=== PATIENT | male | born 1950 | race Caucasian/White ===

== ENCOUNTER 2020-07-26 10:13 | Emergency (ER) | payer MEDICARE, OTHER, SELFPAY ==
[2020-07-26 10:20] VITALS: BP 120/77; PULSE 116; RESP 16; TEMP 36.7; O2SAT 95; BMI 25.0
--- NOTE | 2020-07-26 10:44 | XR_ITS ---
WS: [id number] Portable AP upright chest, 07/26/2020 Clinical Data: dyspnea Comparison: None. Findings: Bilateral patchy opacities are seen especially in the lower lobes. No nodules, masses or ef fusions are seen. The heart is normal. The aortic arch and descending aorta show tortuosity. XR/XR chest 1V portable [id number] Impression: 1. Bilateral patchy opacities which probably represent acute pneumonia. 2. Atherosclerosis.
--- NOTE | 2020-07-26 10:54 | ED_ITS ---
HPI - URI/Sore Throat General: Chief Complaint: Headache Stated Complaint: Weakness/Sick Time Seen by Provider: 07/26/20 10:35 History of Present Illness: HPI Narrative: The patient is a 70-year-old male who complains of headache, and nonproductive cough for the past few days. He vomited a few days ago as well and has not had the taste for food since so he has not been eating or drinking very much at all. Denies chest pain and shortness of breath though he says it does hurt a little bit when he coughs in his belly. Also admits slight nausea. He says he has no medical problems and does not even have a primary care physician. No known exposure to Covid. MD elicited complaint: cough Onset (ago): day(s) (3) Severity: moderate Able to tolerate fluids by mouth: Yes Exacerbating factors: nothing Relieving factors: nothing Associated symptoms: Reports abdominal pain, chills, cough, headache(s), myalgias and nausea; Deny chest pain, diarrhea, ear or mastoid pain, fever(s), nasal congestion or sore throat Review of Systems General: Reports: 10 or more systems reviewed and unremarkable except in HPI and below Const: Reports: chills; Denies: fever(s) Eyes: Denies: change in vision, blurry vision or eye redness ENMT: Denies: throat pain, swelling of lips/tongue, ear or mastoid pain or nasal congestion Card: Denies: chest pain Resp: Denies: dyspnea, productive cough or non-productive cough GI: Reports: abdominal pain and nausea; Denies: diarrhea : Denies: flank pain, urinary frequency or urinary urgency Musc: Denies: neck pain, back pain, extremity pain, joint pain, joint redness, limited range of motion or muscle weakness Skin/Breast: Denies: rash, pruritus, erythema, skin pain or skin tenderness Neuro: Reports: headache(s) Psych: Denies: anxiety or depression Endo: Denies: polyuria All/Imm: Denies: urticaria, throat swelling or tongue swelling Physical Exam Const: COMMON NORMALS: no acute distress, average body habitus, patient oriented x3, no limitations, healthy appearing, alert and well nourished GENERAL APPEARANCE: cooperative, comfortable, well kempt and well developed ORIENTATION/CONSCIOUSNESS: Yes awake, Yes oriented to person, Yes oriented to place and Yes oriented to time HENMT: COMMON NORMALS: normocephalic, external ears normal and Normal external nose present HEAD & SCALP: normal to inspection and normocephalic NOSE: Normal external nose present EXTERNAL EAR: Yes external ears normal MOUTH: Normal oral and palatal mucosa present THROAT: posterior oropharynx normal Eye: COMMON NORMALS: Equal, round and reactive pupils present and EOMs intact bilaterally GENERAL EYE: appearance normal, both eyes and all related structures PUPIL: Yes Equal, round and reactive pupils present Neck/C-Spine: COMMON NORMALS: full ROM, no lymphadenopathy, no meningeal signs and no JVD GENERAL: Yes normal visual inspection Lymph: LYMPHATIC: no lymphadenopathy noted Chest: COMMONS NORMALS: normal inspection of the chest and normal palpation of entire chest wall Resp: COMMON NORMALS: normal respiratory effort, No retractions, No use of accessory muscles, clear to auscultation bilaterally and percussion normal EFFORT & INSPECTION: Yes able to speak in complete sentences AUSCULTATION: clear to auscultation bilaterally PERCUSSION: percussion normal Cardio: COMMON NORMALS: no JVD, regular rate, regular rhythm, S1 normal heart sound present, S2 normal heart sound present and Peripheral pulses 2+ throughout RATE: regular rate RHYTHM: regular rhythm HEART SOUNDS: S1 normal heart sound present and S2 normal heart sound present PERIPHERAL PULSES: Peripheral pulses 2+ throughout GI: COMMON NORMALS: Normal to inspection, nondistended, normoactive bowel sounds present, Soft to palpation, non-tender and no masses INSPECTION: Yes normal to inspection PALPATION: Yes Soft to palpation : COMMON NORMALS: Yes no CVA tenderness BLADDER/KIDNEY EXAM: Yes no CVA tenderness Back/Pelvis: COMMON NORMALS: no CVA tenderness, thoracic and lumbar spine normal to inspection, no thoracic nor lumbar tenderness and thoraco-lumbar ROM normal Extremity: COMMON NORMALS: normal to inspection, full ROM, capillary refill normal, no joint enlargement and no pedal edema GENERAL: Yes normal exam except as noted Neuro: COMMON NORMALS: patient oriented x3, CN's II-XII intact bilaterally, moves all extremities, no focal motor deficits, no sensory deficits noted and gait normal SENSORIUM/ORIENTATION: Yes alert, Yes oriented to person, Yes oriented to place and Yes oriented to time MENINGEAL SIGNS: Yes no meningeal signs Psych: COMMON NORMALS: mental status grossly normal, Normal thought process present, cooperative, normal affect and speech normal APPEARANCE: Yes well kempt ATTITUDE: Yes calm SPEECH: Yes normal speech THOUGHT PROCESS: Normal thought process present Skin: COMMON NORMALS: no rashes or lesions noted GENERAL SKIN EXAM: no rashes or lesions noted Course Vital Signs: Vital signs: Vital Signs Temperature 98.1 F 07/26/20 10:20 Pulse Rate 116 H 07/26/20 10:20 Respiratory Rate 16 07/26/20 10:20 Blood Pressure 120/77 07/26/20 10:20 Pulse Oximetry 95 07/26/20 10:20 MDM - URI/Sore Throat MDM Narrative: Medical decision making narrative: The patient came into the hospital dehydrated and suffering from Covid symptoms. He swabbed positive and chest x-ray also shows a bilateral lower lobe pneumonia. He was given IV dexamethasone and a tablet of levofloxacin and will be discharged with the same and an albuterol inhaler. He is scheduled tomorrow for a BAM infusion. Recommend following up with primary care physician in a few days and returning to ER with worsening symptoms at any time Lab Data: Labs: Lab Results 07/26/20 07/26/20 07/26/20 Range/Units 11:18 11:18 11:18 WBC 7.7 (4.0-10.0) 10^3/ uL RBC 6.06 H (4.1-5.3) 10^6/u L Hgb 17.7 H (11.7-16.6) g/dL Hct 53.2 H (42.0-52.0) % MCV 87.8 (80-94) fL MCH 29.2 (28.0-34.0) pg MCHC 33.3 (30.0-36.0) g/dL RDW 12.1 (12.1-15.1) % Plt Count 149 (130-400) 10^3/c mm MPV 11.8 H (7.4-10.4) fL Neut % (Auto) 86.5 % Lymph % (Auto) 5.6 % Wood % (Auto) 7.5 % Eos % (Auto) 0.0 % Baso % (Auto) 0.1 % Neut # (Auto) 6.65 (1.8-7.7) 10^3/u L Lymph # (Auto) 0.4 L (0.8-4.8) 10^3/u L Wood # (Auto) 0.6 (0.2-0.9) 10^3/u L Eos # (Auto) 0.0 (0.0-0.8) 10^3/u L Baso # (Auto) 0.0 (0.0-0.1) 10^3/u L Nucleated RBC % (a uto) 0 % Nucleated RBCs # 0.0 /100WBC Sodium 132 L (136-145) mmol/L Potassium 4.3 (3.5-5.1) mmol/L Chloride 96 L (98-107) mmol/L Carbon Dioxide 24 (22-29) mmol/L Anion Gap 16.3 (5-19) BUN 20 (8-23) mg/dL Creatinine 0.9 (0.7-1.2) mg/dL GFR Calculation 83.9 L (90-130) mL/min Glucose 113 (65-115) mg/dL Calculated Osmolal ity 277 L (285-295) mOsm/k g Lactate 1.6 (0.5-2.2) mmol/L Calcium 9.3 (8.5-10.5) mg/dL Total Bilirubin 0.9 (0.15-1.2) mg/dL AST 22 (0-40) U/L ALT 27 (0-41) U/L Alkaline Phosphata se 60 (40-130) IU/L Troponin T Baselin e (0-15) ng/L Total Protein 7.7 (6.6-8.7) g/dL Albumin 4.1 (3.5-5.2) g/dL Globulin 3.6 (1.3-4.6) g/dL SARS-CoV-2 Ag (Rap id) (Negative) 07/26/20 07/26/20 Range/Units 11:18 11:23 WBC (4.0-10.0) 10^3/ uL RBC (4.1-5.3) 10^6/u L Hgb (11.7-16.6) g/dL Hct (42.0-52.0) % MCV (80-94) fL MCH (28.0-34.0) pg MCHC (30.0-36.0) g/dL RDW (12.1-15.1) % Plt Count (130-400) 10^3/c mm MPV (7.4-10.4) fL Neut % (Auto) % Lymph % (Auto) % Wood % (Auto) % Eos % (Auto) % Baso % (Auto) % Neut # (Auto) (1.8-7.7) 10^3/u L Lymph # (Auto) (0.8-4.8) 10^3/u L Wood # (Auto) (0.2-0.9) 10^3/u L Eos # (Auto) (0.0-0.8) 10^3/u L Baso # (Auto) (0.0-0.1) 10^3/u L Nucleated RBC % (a uto) % Nucleated RBCs # /100WBC Sodium (136-145) mmol/L Potassium (3.5-5.1) mmol/L Chloride (98-107) mmol/L Carbon Dioxide (22-29) mmol/L Anion Gap (5-19) BUN (8-23) mg/dL Creatinine (0.7-1.2) mg/dL GFR Calculation (90-130) mL/min Glucose (65-115) mg/dL Calculated Osmolal ity (285-295) mOsm/k g Lactate (0.5-2.2) mmol/L Calcium (8.5-10.5) mg/dL Total Bilirubin (0.15-1.2) mg/dL AST (0-40) U/L ALT (0-41) U/L Alkaline Phosphata se (40-130) IU/L Troponin T Baselin e 9 (0-15) ng/L Total Protein (6.6-8.7) g/dL Albumin (3.5-5.2) g/dL Globulin (1.3-4.6) g/dL SARS-CoV-2 Ag (Rap id) Positive H (Negative) Discharge Plan Discharge Patient Disposition: Home Clinical Impression: COVID-19, Pneumonia Condition: Stable Prescriptions: New albuterol sulfate 90 mcg/actuation HFA aerosol inhaler 2 inh inhalation Q6H PRN (Reason: shortness of breath or wheezing) 90 Days RF: 0 levofloxacin 750 mg tablet 750 mg PO DAILY 14 Days RF: 0 Medrol (Deshaun) 4 mg tablets,dose pack See Rx Instructions PO .COMPLEX Qty: 21 RF: 0 No Action Aspir-81 81 mg Tablet,Delayed Release (Dr/Ec) 81 mg PO PRN RF: 0 garlic Tablet 1 tab PO PRN RF: 0 Suphedrine PE 10 mg Tablet 10 mg PO PRN RF: 0 Discharge Orders: Discharge ED (Routine); Ordered 07/26/20 Ordered By: Ron Pedroza Discharge Diet: Advance as tolerated Discharge Activity: Resume usual activity Patient Instructions: Bacterial Pneumonia (ED) Activity Restrictions/Additional Instructions: You have COVID-19 and a small pneumonia as well. Please take the antibiotics, steroids, and use the albuterol inhaler to help you if you get short of breath. Return to the ER with worsening symptoms. Otherwise you may follow-up outpatient for the BAM injection tomorrow and with your primary care physician in a few days. Return to the ER with worsening symptoms at any time Coding Level of Care Code ED Loss Prevention/Safety District Manager for [facility] Pool Exam Comprehensive
[2020-07-26 11:40] LABS: Basophils % 0.1 %; Hematocrit 53.2 % (42.0-52.0); Hemoglobin 17.7 g/dL (11.7-16.6); Lymphocytes # 0.4 10^3/uL (0.8-4.8); Lymphocytes % 5.6 %; Mean Corpuscular HGB Conc 33.3 g/dL (30.0-36.0); Mean Corpuscular Hemoglobin 29.2 pg (28.0-34.0); Mean Corpuscular Volume 87.8 fL (80-94); Mean Platelet Volume 11.8 fL (7.4-10.4); Monocytes # 0.6 10^3/uL (0.2-0.9); Monocytes % 7.5 %; Neutrophils # 6.65 10^3/uL (1.8-7.7); Neutrophils % 86.5 %; Nucleated Red Blood Cells % 0 %; Platelet Count 149 10^3/cmm (130-400); Red Blood Count 6.06 10^6/uL (4.1-5.3); Red Cell Distribution Width 12.1 % (12.1-15.1); White Blood Count 7.7 10^3/uL (4.0-10.0)
[2020-07-26 11:47] LABS: Alanine Aminotransferase 27 U/L (0-41); Albumin Level 4.1 g/dL (3.5-5.2); Alkaline Phosphatase 60 IU/L (40-130); Anion Gap 16.3 (5-19); Aspartate Amino Transferase 22 U/L (0-40); Blood Urea Nitrogen 20 mg/dL (8-23); Calcium 9.3 mg/dL (8.5-10.5); Carbon Dioxide 24 mmol/L (22-29); Chloride 96 mmol/L (98-107); Globulin 3.6 g/dL (1.3-4.6); Glomerular Filtration Rate 83.9 mL/min (90-130); Glucose 113 mg/dL (65-115); Lactate (Lactic Acid level) 1.6 mmol/L (0.5-2.2); Osmolality Calculated 277 mOsm/kg (285-295); Potassium 4.3 mmol/L (3.5-5.1); Sodium 132 mmol/L (136-145); Total Bilirubin 0.9 mg/dL (0.15-1.2); Total Protein 7.7 g/dL (6.6-8.7)
[2020-07-26 11:51] LABS: Troponin(5th) Baseline 9 ng/L (0-15)
[2020-07-26] MEDS: ondansetron 2 mg/ML SDV 2 mL 4 MG IVP (12:03)
[2020-07-26] MEDS: sodium chloride 0.9% 1,000 ML 999 ML IV (12:03)
[2020-07-26] MEDS: ketorolac 30 mg/mL INJ 15 MG IVP (12:03)
[2020-07-26 12:16] LABS: SARS Covid-2 Antigen Positive (Negative)
[2020-07-26] MEDS: dexamethasone 10 mg/mL INJ IVP (13:47)
[2020-07-26] MEDS: levoFLOXacin 750 mg Tablet PO (13:47)
--- NOTE | 2020-07-26 14:16 | DCPLANNER ---
patient manager was asked to schedule an out patient BAM infusion for patient. patient manager faxed order for BAM infusion to centralized scheduling. Centralized scheduling will call patient with appointment information.
[2020-07-26 14:26] VITALS: BP 117/76; PULSE 95; RESP 20; TEMP 37.2; O2SAT 92
--- NOTE | 2020-07-27 10:29 | DCPLANNER ---
program manager environmental planning had message to speak with patient about getting established with a primary care physician. program manager environmental planning was unable to speak with patient, and unable to leave a message for patient.
== END 2020-07-26 14:27 | disposition home or self-care (01) ==
PROVIDERS: Emergency Provider Family Medicine
DX: U07.1 COVID-19 (principal); J12.82 Pneumonia due to coronavirus disease 2019; Z79.82 Long term (current) use of aspirin
CPT/HCPCS: 12345; 36415; 71045; 80053; 83605; 84484; 85025; 87040; 87426; 96361; 96374; 96375; 99282; 99284; J1100; J1885; J2405; J7030

== ENCOUNTER 2020-07-27 12:43 | Outpatient (CLI) | payer MEDICARE, OTHER, SELFPAY ==
[2020-07-27 13:16] VITALS: BMI 24.4
[2020-07-27 13:20] VITALS: BP 128/75; PULSE 105; RESP 20; TEMP 38.8; O2SAT 92
--- NOTE | 2020-07-27 13:28 | A.OFFVIS_ITS ---
Patient Information Referred by: Yovany Symptom onset date: 07/23/20 COVID 19 common symptoms: positive fever(s) and cough [facility] COVID test results: SARS-CoV-2 Antigen (Rapid) Positive (Negative) H 07/26/20 11:23 07/26/20 Criteria/Plan Inclusion/Exclusion Criteria weight >/= 40kg, + direct test </= 10 days ago and symptom onset </= 10 days ago age >/= 65 not requiring hospitalization, not requiring oxygen (if not chronically on oxygen) and no increase oxygen requirement (if chronically on oxygen) Patient education patient/caregiver received/reviewed fact sheet, Emergency Use Authorization/unapproved drug status discussed with patient/caregiver, alternatives to this treatment discussed with patient/caregiver, risks and b enefits of medication reviewed with patient/caregiver, patient/caregiver given opportunity for questions, which were answered and patient/caregiver consents to receiving Monoclonal Antibody Treatment Plan for treatment Meets criteria for Monoclonal Antibody infusion Ordering Monoclonal Antibody infusion for today Other information 97% RA
[2020-07-27 14:25] VITALS: BP 128/77; PULSE 98; RESP 20; O2SAT 92
[2020-07-27 15:25] VITALS: BP 121/86; PULSE 115; RESP 18; O2SAT 93
== END 2020-07-27 15:26 | disposition home or self-care (01) ==
LOC: OPS 12:45
PROVIDERS: Referring Provider Nurse Practitioner Family; Visit Provider Family Medicine
DX: U07.1 COVID-19 (principal)
CPT/HCPCS: 96365